=== PATIENT | female | born 1960 | race Caucasian/White ===

== ENCOUNTER 2018-04-21 14:28 | Emergency (ER) | payer MEDICARE, OTHER, MEDICAID ==
[2018-04-21] MEDS: ONDANSETRON 4 MG INJ IV (15:52)
[2018-04-21] MEDS: FAMOTIDINE 20 MG INJ IV (15:52)
[2018-04-21] MEDS: SOD CHLORIDE 0.9% 1,000 ML IV (15:52)
[2018-04-21] MEDS: morphine 4 MG/ML VIAL IV (15:53)
[2018-04-21 16:01] LABS: ADD MAN DIFF? NO
[2018-04-21 16:02] LABS: BASOPHILS % 0.5 % (0.0-2.0); EOSINOPHILS # 0.1 10^3/ul (0.0-0.5); EOSINOPHILS % 1.7 % (0.0-7.0); HEMATOCRIT 39.2 % (37.0-47.0); LYMPHOCYTES # 1.8 10^3/ul (0.8-2.9); LYMPHOCYTES % 29.6 % (15.0-51.0); MEAN CORPUSCULAR HEMOGLOBIN 29.8 pg (29.0-33.0); MEAN CORPUSCULAR HGB CONC 33.2 g/dl (32.0-37.0); MEAN CORPUSCULAR VOLUME 89.9 fl (82.0-101.0); MEAN PLATELET VOLUME 11.7 fl (7.4-10.4); MONOCYTE # 0.5 10^3/ul (0.3-0.9); MONOCYTES % 8.7 % (0.0-11.0); NEUTROPHIL # 3.5 10^3/ul (1.6-7.5); NEUTROPHILS % 59.3 % (39.0-77.0); PLATELET COUNT 207 10^3/UL (140-415); RED BLOOD COUNT 4.36 10^6/ul (4.20-5.40); RED CELL DISTRIBUTION WIDTH 13.8 % (11.5-14.5)
[2018-04-21 16:20] LABS: ALANINE AMINOTRANSFERASE 37 IU/L (13-69); ALBUMIN 4.5 g/dl (3.3-4.9); ALBUMIN/GLOBULIN RATIO 1.45; ALKALINE PHOSPHATASE 92 IU/L (42-121); ANION GAP 11 (8-16); ASPARTATE AMINO TRANSFERASE 30 IU/L (15-46); BILIRUBIN,INDIRECT 0.6 mg/dl (0-1.1); BILIRUBIN,TOTAL 0.6 mg/dl (0.2-1.3); BLOOD UREA NITROGEN 10 mg/dl (7-20); CALCIUM 9.8 mg/dl (8.4-10.2); CARBON DIOXIDE 32 mmol/L (21-31); CHLORIDE 104 mmol/L (97-110); CREATININE 0.69 mg/dl (0.44-1.00); GLUCOSE 107 mg/dl (70-220); LIPASE 111 U/L (23-300); POTASSIUM 4.5 mmol/L (3.5-5.1); SODIUM 142 mmol/L (135-144); TOTAL PROTEIN 7.6 g/dl (6.1-8.1)
[2018-04-21 16:32] LABS: TROPONIN-I < 0.010 ng/ml (0.000-0.120)
[2018-04-21 17:31] LABS: ADD UMIC NO; UR AMORPHOUS CRYSTAL FEW /HPF (NONE SEEN); UR ASCORBIC ACID NEGATIVE (NEGATIVE); UR BACTERIA FEW /HPF (NONE SEEN); UR BILIRUBIN (Dip) NEGATIVE (NEGATIVE); UR BLOOD (Dip) NEGATIVE (NEGATIVE); UR CLARITY SLIGHTLY CLOUDY (CLEAR); UR COLOR YELLOW (YELLOW); UR GLUCOSE (Dip) NEGATIVE (NEGATIVE); UR KETONES (Dip) NEGATIVE (NEGATIVE); UR LEUKOCYTE ESTERASE (Dip) NEGATIVE Leu/ul (NEGATIVE); UR NITRITE (Dip) NEGATIVE (NEGATIVE); UR RBC 1 /HPF (0-5); UR SPECIFIC GRAVITY (Dip) 1.011 (1.003-1.030); UR SQUAMOUS EPITHELIAL CELL FEW /HPF (FEW); UR TOTAL PROTEIN (Dip) NEGATIVE (NEGATIVE); UR UROBILINOGEN (Dip) NEGATIVE (NEGATIVE); UR WBC 12 /HPF (0-5)
== END 2018-04-21 17:39 | disposition home or self-care (01) ==
LOC: E/R 14:28
DX: K52.9 Noninfective gastroenteritis and colitis, unspecified (principal)
CPT/HCPCS: 36415; 74176; 80053; 81001; 81003; 83690; 84484; 85025; 93005; 96361; 96374; 96375; 99285-25

== ENCOUNTER 2018-07-31 10:05 | Inpatient (IN) | payer MEDICARE, OTHER ==
[2018-07-31 10:38] LABS: ADD MAN DIFF? NO
[2018-07-31 10:42] LABS: BASOPHILS % 0.4 % (0.0-2.0); EOSINOPHILS # 0.1 10^3/ul (0.0-0.5); EOSINOPHILS % 0.6 % (0.0-7.0); HEMATOCRIT 40.7 % (37.0-47.0); HEMOGLOBIN 13.5 g/dl (12.0-16.0); LYMPHOCYTES % 11.5 % (15.0-51.0); MEAN CORPUSCULAR HEMOGLOBIN 29.6 pg (29.0-33.0); MEAN CORPUSCULAR HGB CONC 33.2 g/dl (32.0-37.0); MEAN CORPUSCULAR VOLUME 89.3 fl (82.0-101.0); MEAN PLATELET VOLUME 11.4 fl (7.4-10.4); MONOCYTE # 0.5 10^3/ul (0.3-0.9); NEUTROPHILS % 81.3 % (39.0-77.0); PLATELET COUNT 232 10^3/UL (140-415); RED BLOOD COUNT 4.56 10^6/ul (4.20-5.40); RED CELL DISTRIBUTION WIDTH 13.2 % (11.5-14.5)
[2018-07-31 10:42] LABS: WHITE BLOOD COUNT 8.6 10^3/ul (4.8-10.8)
[2018-07-31] MEDS: PANTOPRAZOLE 40 MG INJ IV (11:04)
[2018-07-31] MEDS: ONDANSETRON 4 MG INJ IV (11:05)
[2018-07-31] MEDS: morphine 4 MG/ML VIAL IV (11:05)
[2018-07-31 11:07] LABS: ALANINE AMINOTRANSFERASE 68 IU/L (13-69); ALBUMIN 4.4 g/dl (3.3-4.9); ALBUMIN/GLOBULIN RATIO 1.33; ALKALINE PHOSPHATASE 136 IU/L (42-121); ANION GAP 10 (5-13); ASPARTATE AMINO TRANSFERASE 129 IU/L (15-46); BLOOD UREA NITROGEN 11 mg/dl (7-20); CALCIUM 10.1 mg/dl (8.4-10.2); CARBON DIOXIDE 30 mmol/L (21-31); CHLORIDE 103 mmol/L (97-110); CREATININE 0.61 mg/dl (0.44-1.00); Estimated GFR > 60 mL/min (>60); GLUCOSE 145 mg/dl (70-220); LIPASE 74 U/L (23-300); POTASSIUM 3.9 mmol/L (3.5-5.1); SODIUM 143 mmol/L (135-144); TOTAL PROTEIN 7.7 g/dl (6.1-8.1)
[2018-07-31 11:19] LABS: TROPONIN-I < 0.012 ng/ml (0.000-0.120)
[2018-07-31] MEDS ORDERED: ONDANSETRON 4 MG INJ IV (12:30)
[2018-07-31] MEDS ORDERED: ACETAMINOPHEN 325 MG TAB PO (12:30)
[2018-07-31] MEDS: SOD CHLORIDE 0.9% 1,000 ML IV (12:59)
[2018-07-31] MEDS ORDERED: NACL 0.9% 3 ML SYG IV (14:00)
[2018-07-31] MEDS: METOCLOPRAMIDE 10 MG INJ IV ×2 (14:59→20:04)
[2018-07-31] MEDS: DEXTROSE 5%-0.45% NACL 1,000 ML IV (15:00)
[2018-08-01] MEDS: DEXTROSE 5%-0.45% NACL 1,000 ML IV ×3 (00:35→19:06)
[2018-08-01] MEDS: METOCLOPRAMIDE 10 MG INJ IV ×5 (00:35→23:51)
[2018-08-01 06:01] LABS: ADD MAN DIFF? NO
[2018-08-01] MEDS: PANTOPRAZOLE 40 MG INJ IV (06:05)
[2018-08-01 06:26] LABS: WHITE BLOOD COUNT 7.3 10^3/ul (4.8-10.8)
[2018-08-01 06:26] LABS: BASOPHILS % 0.3 % (0.0-2.0); EOSINOPHILS # 0.2 10^3/ul (0.0-0.5); EOSINOPHILS % 2.9 % (0.0-7.0); HEMATOCRIT 38.4 % (37.0-47.0); HEMOGLOBIN 12.5 g/dl (12.0-16.0); LYMPHOCYTES # 1.7 10^3/ul (0.8-2.9); LYMPHOCYTES % 22.6 % (15.0-51.0); MEAN CORPUSCULAR HEMOGLOBIN 29.3 pg (29.0-33.0); MEAN CORPUSCULAR HGB CONC 32.6 g/dl (32.0-37.0); MEAN CORPUSCULAR VOLUME 90.1 fl (82.0-101.0); MEAN PLATELET VOLUME 11.3 fl (7.4-10.4); MONOCYTE # 0.8 10^3/ul (0.3-0.9); MONOCYTES % 10.9 % (0.0-11.0); NEUTROPHIL # 4.6 10^3/ul (1.6-7.5); PLATELET COUNT 221 10^3/UL (140-415); RED BLOOD COUNT 4.26 10^6/ul (4.20-5.40); RED CELL DISTRIBUTION WIDTH 13.2 % (11.5-14.5)
[2018-08-01 06:57] LABS: ALANINE AMINOTRANSFERASE 144 IU/L (13-69); ALBUMIN 3.8 g/dl (3.3-4.9); ALBUMIN/GLOBULIN RATIO 1.35; ALKALINE PHOSPHATASE 115 IU/L (42-121); ANION GAP 4 (5-13); ASPARTATE AMINO TRANSFERASE 119 IU/L (15-46); BLOOD UREA NITROGEN 8 mg/dl (7-20); CALCIUM 9.2 mg/dl (8.4-10.2); CARBON DIOXIDE 31 mmol/L (21-31); CHLORIDE 106 mmol/L (97-110); CREATININE 0.73 mg/dl (0.44-1.00); Estimated GFR > 60 mL/min (>60); GLUCOSE 105 mg/dl (70-220); MAGNESIUM 1.8 mg/dl (1.7-2.5); POTASSIUM 4.3 mmol/L (3.5-5.1); SODIUM 141 mmol/L (135-144); TOTAL PROTEIN 6.6 g/dl (6.1-8.1)
[2018-08-01] MEDS: ENOXAPARIN 40 MG/0.4 ML SYG SC (08:37)
[2018-08-02] MEDS: DEXTROSE 5%-0.45% NACL 1,000 ML IV ×2 (05:07→18:19)
[2018-08-02] MEDS: METOCLOPRAMIDE 10 MG INJ IV ×3 (05:07→17:21)
[2018-08-02] MEDS: PANTOPRAZOLE 40 MG INJ IV (05:07)
[2018-08-02 05:19] LABS: ADD MAN DIFF? NO
[2018-08-02 05:23] LABS: BASOPHILS % 0.3 % (0.0-2.0); EOSINOPHILS # 0.2 10^3/ul (0.0-0.5); EOSINOPHILS % 2.3 % (0.0-7.0); HEMATOCRIT 37.4 % (37.0-47.0); HEMOGLOBIN 12.5 g/dl (12.0-16.0); LYMPHOCYTES # 1.7 10^3/ul (0.8-2.9); LYMPHOCYTES % 23.7 % (15.0-51.0); MEAN CORPUSCULAR HEMOGLOBIN 29.8 pg (29.0-33.0); MEAN CORPUSCULAR HGB CONC 33.4 g/dl (32.0-37.0); MEAN PLATELET VOLUME 11.4 fl (7.4-10.4); MONOCYTE # 0.7 10^3/ul (0.3-0.9); MONOCYTES % 9.6 % (0.0-11.0); NEUTROPHIL # 4.7 10^3/ul (1.6-7.5); NEUTROPHILS % 63.8 % (39.0-77.0); PLATELET COUNT 222 10^3/UL (140-415); RED CELL DISTRIBUTION WIDTH 13.1 % (11.5-14.5)
[2018-08-02 05:23] LABS: WHITE BLOOD COUNT 7.3 10^3/ul (4.8-10.8)
[2018-08-02 05:53] LABS: ALANINE AMINOTRANSFERASE 96 IU/L (13-69); ALBUMIN 3.8 g/dl (3.3-4.9); ALBUMIN/GLOBULIN RATIO 1.58; ALKALINE PHOSPHATASE 110 IU/L (42-121); ANION GAP 8 (5-13); ASPARTATE AMINO TRANSFERASE 49 IU/L (15-46); BILIRUBIN,INDIRECT 0.8 mg/dl (0-1.1); BILIRUBIN,TOTAL 0.8 mg/dl (0.2-1.3); BLOOD UREA NITROGEN 7 mg/dl (7-20); CALCIUM 8.9 mg/dl (8.4-10.2); CARBON DIOXIDE 30 mmol/L (21-31); CHLORIDE 105 mmol/L (97-110); CREATININE 0.62 mg/dl (0.44-1.00); Estimated GFR > 60 mL/min (>60); GLUCOSE 110 mg/dl (70-220); MAGNESIUM 1.7 mg/dl (1.7-2.5); POTASSIUM 3.9 mmol/L (3.5-5.1); SODIUM 143 mmol/L (135-144); TOTAL PROTEIN 6.2 g/dl (6.1-8.1)
[2018-08-02] MEDS: ENOXAPARIN 40 MG/0.4 ML SYG SC (08:37)
[2018-08-02] MEDS: IOHEXOL 300MG/ML 150 ML BTL ×2 (11:00)
[2018-08-02] MEDS: KETOROLAC 30 MG INJ IV ×2 (12:40→18:41)
[2018-08-02] MEDS: hydrALAzine 20 MG INJ IV (20:52)
[2018-08-02] MEDS: ONDANSETRON 4 MG INJ IV (23:28)
[2018-08-03] MEDS: METOCLOPRAMIDE 10 MG INJ IV ×4 (00:02→17:42)
[2018-08-03] MEDS: KETOROLAC 30 MG INJ IV (01:14)
[2018-08-03] MEDS: DEXTROSE 5%-0.45% NACL 1,000 ML IV ×3 (01:33→17:42)
[2018-08-03] MEDS: hydrALAzine 20 MG INJ IV (02:04)
[2018-08-03] MEDS: PANTOPRAZOLE 40 MG INJ IV (05:00)
[2018-08-03 05:26] LABS: ADD MAN DIFF? NO; BASOPHILS % 0.2 % (0.0-2.0); HEMATOCRIT 43.4 % (37.0-47.0); HEMOGLOBIN 14.5 g/dl (12.0-16.0); LYMPHOCYTES # 0.7 10^3/ul (0.8-2.9); LYMPHOCYTES % 7.4 % (15.0-51.0); MEAN CORPUSCULAR HEMOGLOBIN 29.2 pg (29.0-33.0); MEAN CORPUSCULAR HGB CONC 33.4 g/dl (32.0-37.0); MEAN CORPUSCULAR VOLUME 87.3 fl (82.0-101.0); MEAN PLATELET VOLUME 11.3 fl (7.4-10.4); MONOCYTE # 0.4 10^3/ul (0.3-0.9); MONOCYTES % 4.2 % (0.0-11.0); NEUTROPHIL # 7.7 10^3/ul (1.6-7.5); NEUTROPHILS % 86.3 % (39.0-77.0); PLATELET COUNT 260 10^3/UL (140-415); RED BLOOD COUNT 4.97 10^6/ul (4.20-5.40); RED CELL DISTRIBUTION WIDTH 13.1 % (11.5-14.5)
[2018-08-03 06:07] LABS: ALANINE AMINOTRANSFERASE 103 IU/L (13-69); ALBUMIN 4.9 g/dl (3.3-4.9); ALBUMIN/GLOBULIN RATIO 1.63; ALKALINE PHOSPHATASE 150 IU/L (42-121); ANION GAP 14 (5-13); ASPARTATE AMINO TRANSFERASE 66 IU/L (15-46); BILIRUBIN,INDIRECT 0.8 mg/dl (0-1.1); BILIRUBIN,TOTAL 0.8 mg/dl (0.2-1.3); BLOOD UREA NITROGEN 14 mg/dl (7-20); CARBON DIOXIDE 32 mmol/L (21-31); CHLORIDE 98 mmol/L (97-110); CREATININE 0.64 mg/dl (0.44-1.00); Estimated GFR > 60 mL/min (>60); GLUCOSE 179 mg/dl (70-220); MAGNESIUM 1.6 mg/dl (1.7-2.5); POTASSIUM 3.6 mmol/L (3.5-5.1); SODIUM 144 mmol/L (135-144); TOTAL PROTEIN 7.9 g/dl (6.1-8.1)
[2018-08-03] MEDS: ENOXAPARIN 40 MG/0.4 ML SYG SC (09:00)
[2018-08-03] MEDS ORDERED: ACETAMINOPHEN 650 MG SUPP PR (10:00)
[2018-08-03] MEDS ORDERED: ACETAMINOPHEN 1000MG/100ML IV 100 ML IVPB ×2 (10:00→16:00)
[2018-08-04] MEDS: METOCLOPRAMIDE 10 MG INJ IV ×4 (01:01→17:49)
[2018-08-04] MEDS: DEXTROSE 5%-0.45% NACL 1,000 ML IV ×2 (04:16→15:46)
[2018-08-04] MEDS: PANTOPRAZOLE 40 MG INJ IV (05:28)
[2018-08-04 05:53] LABS: ALANINE AMINOTRANSFERASE 70 IU/L (13-69); ALBUMIN 4.2 g/dl (3.3-4.9); ALBUMIN/GLOBULIN RATIO 1.68; ALKALINE PHOSPHATASE 116 IU/L (42-121); ANION GAP 10 (5-13); ASPARTATE AMINO TRANSFERASE 31 IU/L (15-46); BILIRUBIN,INDIRECT 0.7 mg/dl (0-1.1); BILIRUBIN,TOTAL 0.7 mg/dl (0.2-1.3); BLOOD UREA NITROGEN 22 mg/dl (7-20); CALCIUM 9.6 mg/dl (8.4-10.2); CARBON DIOXIDE 35 mmol/L (21-31); CHLORIDE 98 mmol/L (97-110); CREATININE 0.79 mg/dl (0.44-1.00); Estimated GFR > 60 mL/min (>60); GLUCOSE 110 mg/dl (70-220); MAGNESIUM 1.8 mg/dl (1.7-2.5); POTASSIUM 3.5 mmol/L (3.5-5.1); SODIUM 143 mmol/L (135-144); TOTAL PROTEIN 6.7 g/dl (6.1-8.1)
[2018-08-04] MEDS: ENOXAPARIN 40 MG/0.4 ML SYG SC (08:27)
[2018-08-04] MEDS: PHENOL 1.4% SOLN 180 ML BTL PO ×2 (12:54→20:33)
[2018-08-05] MEDS: METOCLOPRAMIDE 10 MG INJ IV ×5 (00:12→23:24)
[2018-08-05] MEDS: DEXTROSE 5%-0.45% NACL 1,000 ML IV ×4 (03:34→23:24)
[2018-08-05] MEDS: PANTOPRAZOLE 40 MG INJ IV (05:32)
[2018-08-05] MEDS: ENOXAPARIN 40 MG/0.4 ML SYG SC (08:29)
[2018-08-05] MEDS: ONDANSETRON 4 MG INJ IV (14:44)
[2018-08-06] MEDS: METOCLOPRAMIDE 10 MG INJ IV (05:44)
[2018-08-06] MEDS: PANTOPRAZOLE 40 MG INJ IV (05:44)
[2018-08-06 06:03] LABS: ADD MAN DIFF? NO
[2018-08-06 06:12] LABS: BASOPHILS % 0.3 % (0.0-2.0); EOSINOPHILS # 0.4 10^3/ul (0.0-0.5); EOSINOPHILS % 5.5 % (0.0-7.0); HEMATOCRIT 37.1 % (37.0-47.0); HEMOGLOBIN 12.2 g/dl (12.0-16.0); LYMPHOCYTES # 2.3 10^3/ul (0.8-2.9); LYMPHOCYTES % 32.5 % (15.0-51.0); MEAN CORPUSCULAR HEMOGLOBIN 29.3 pg (29.0-33.0); MEAN CORPUSCULAR HGB CONC 32.9 g/dl (32.0-37.0); MEAN PLATELET VOLUME 11.9 fl (7.4-10.4); MONOCYTE # 0.8 10^3/ul (0.3-0.9); MONOCYTES % 11.8 % (0.0-11.0); NEUTROPHIL # 3.5 10^3/ul (1.6-7.5); NEUTROPHILS % 49.6 % (39.0-77.0); PLATELET COUNT 200 10^3/UL (140-415); RED BLOOD COUNT 4.17 10^6/ul (4.20-5.40); RED CELL DISTRIBUTION WIDTH 13.1 % (11.5-14.5)
[2018-08-06 07:24] LABS: ANION GAP 7 (5-13); BLOOD UREA NITROGEN 8 mg/dl (7-20); CALCIUM 8.6 mg/dl (8.4-10.2); CARBON DIOXIDE 34 mmol/L (21-31); CHLORIDE 99 mmol/L (97-110); Estimated GFR > 60 mL/min (>60); GLUCOSE 87 mg/dl (70-220); MAGNESIUM 1.6 mg/dl (1.7-2.5); PHOSPHORUS 3.2 mg/dl (2.5-4.9); SODIUM 140 mmol/L (135-144)
[2018-08-06] MEDS: ENOXAPARIN 40 MG/0.4 ML SYG SC (08:22)
[2018-08-06] MEDS: DEXTROSE 5%-0.45% NACL 1,000 ML IV (09:33)
[2018-08-06] MEDS: MAGNESIUM OXIDE 400 MG TAB PO (12:32)
[2018-08-06] MEDS: POTASSIUM CHLORIDE 20 MEQ POWDER FOR ORAL SOLN PO ×2 (12:32→12:33)
== END 2018-08-06 14:15 | disposition home or self-care (01) | DRG 390 ==
LOC: E/R 10:05 → PP2 12:12
DX: K56.609 Unspecified intestinal obstruction, unspecified as to partial versus complete obstruction (principal); S00.83XA Contusion of other part of head, initial encounter; W19.XXXA Unspecified fall, initial encounter; Z90.710 Acquired absence of both cervix and uterus; Z90.49 Acquired absence of other specified parts of digestive tract; K56.7 Ileus, unspecified
CPT/HCPCS: 36415; 71045; 74018; 74176; 74250; 80048; 80053; 83036; 83690; 83735; 84100; 84484; 85025; 93005; 96374; 96375; 99285-25

== ENCOUNTER 2019-05-07 14:07 | Emergency (ER) | payer MEDICARE, OTHER ==
[2019-05-07 14:53] LABS: URINE PH (Dip) POC 5.5 (5.0-8.5)
[2019-05-07 14:53] LABS: URINE BLOOD (Dip) POC Trace-intact (NEGATIVE); URINE GLUCOSE (Dip) POC Negative (NEGATIVE); URINE KETONES (Dip) POC 1+ (NEGATIVE); URINE LEUKOCYTE EST (Dip) POC 1+ (NEGATIVE); URINE NITRITE (Dip) POC Negative (NEGATIVE); URINE TOTAL PROTEIN POC 1+ (NEGATIVE)
[2019-05-07] MEDS: LIDOCAINE/MYLANTA 40 ML BTL PO (14:59)
[2019-05-07] MEDS: FAMOTIDINE 20 MG INJ IV (14:59)
[2019-05-07 15:02] LABS: ADD MAN DIFF? NO
[2019-05-07 15:03] LABS: BASOPHILS % 0.3 % (0.0-2.0); EOSINOPHILS % 0.5 % (0.0-7.0); HEMATOCRIT 40.1 % (37.0-47.0); HEMOGLOBIN 13.2 g/dl (12.0-16.0); LYMPHOCYTES # 2.5 10^3/ul (0.8-2.9); LYMPHOCYTES % 39.8 % (15.0-51.0); MEAN CORPUSCULAR HEMOGLOBIN 29.6 pg (29.0-33.0); MEAN CORPUSCULAR HGB CONC 32.9 g/dl (32.0-37.0); MEAN CORPUSCULAR VOLUME 89.9 fl (82.0-101.0); MEAN PLATELET VOLUME 11.2 fl (7.4-10.4); MONOCYTE # 0.6 10^3/ul (0.3-0.9); MONOCYTES % 9.4 % (0.0-11.0); NEUTROPHIL # 3.1 10^3/ul (1.6-7.5); NEUTROPHILS % 49.8 % (39.0-77.0); PLATELET COUNT 210 10^3/UL (140-415); RED BLOOD COUNT 4.46 10^6/ul (4.20-5.40); RED CELL DISTRIBUTION WIDTH 13.2 % (11.5-14.5)
[2019-05-07 15:03] LABS: WHITE BLOOD COUNT 6.2 10^3/ul (4.8-10.8)
[2019-05-07 15:28] LABS: ALANINE AMINOTRANSFERASE 24 IU/L (13-69); ALBUMIN 4.5 g/dl (3.3-4.9); ALKALINE PHOSPHATASE 81 IU/L (42-121); ANION GAP 7 (5-13); ASPARTATE AMINO TRANSFERASE 25 IU/L (15-46); BILIRUBIN,INDIRECT 0.5 mg/dl (0-1.1); BILIRUBIN,TOTAL 0.5 mg/dl (0.2-1.3); BLOOD UREA NITROGEN 14 mg/dl (7-20); CALCIUM 9.9 mg/dl (8.4-10.2); CARBON DIOXIDE 32 mmol/L (21-31); CHLORIDE 104 mmol/L (97-110); CREATININE 0.69 mg/dl (0.44-1.00); Estimated GFR > 60 mL/min (>60); GLUCOSE 115 mg/dl (70-220); LIPASE 96 U/L (23-300); POTASSIUM 4.3 mmol/L (3.5-5.1); SODIUM 143 mmol/L (135-144); TOTAL PROTEIN 7.7 g/dl (6.1-8.1)
== END 2019-05-07 16:01 | disposition home or self-care (01) ==
LOC: E/R 14:07
DX: N39.0 Urinary tract infection, site not specified (principal)
CPT/HCPCS: 36415; 80053; 81003; 83690; 85025; 93005; 96374; 99284-25